=== PATIENT | male | born 1945 | race Caucasian/White ===

== ENCOUNTER 2020-03-25 21:36 | Observation (INO) ==
[2020-03-25] MEDS ORDERED: NS 0.9% 1000 ml BAG 1,000 ML IV ONE (22:49)
[2020-03-25 23:01] LABS: ABS Lymphocytes 0.6 10^3/ul (1.0-4.8); ABS Monocytes 0.8 10^3/ul (0-0.8); Eosinophil % 0.1 %; Hematocrit 47 % (42-52); Hemoglobin 16.3 g/dL (14.0-18.0); Lymphocyte % 7.6 %; Mean Corpuscular HGB Conc 35 g/dL (31-36); Mean Corpuscular Hemoglobin 32 pg (27-31); Mean Corpuscular Volume 92 fL (80-94); Mean Platelet Volume 7.8 fL (7.4-10.4); Nucleated Red Blood Cells % 0.1; Platelet Count 165 10^3/uL (150-450); Red Blood Count 5.08 10^6 /uL (4.18-5.48); Red Cell Distribution Width 13 % (10-15); White Blood Count 7.5 10^3/uL (3.5-10.8)
[2020-03-25 23:14] LABS: INR 1.27 (0.82-1.09)
[2020-03-25 23:20] LABS: Albumin 4.2 g/dL (3.2-5.2); Albumin/Globulin Ratio 1.6 (1-3); BUN/Creatinine Ratio 14.7 (8-20); C Reactive Protein 58.41 mg/L (<8.01); Calcium 8.7 mg/dL (8.6-10.3); EGFR African American 65.7 (>60); EGFR Non-African American 54.3 (>60); Globulin 2.7 g/dL (2-4); Potassium 4.1 mmol/L (3.5-5.0); Total Bilirubin 1.2 mg/dL (0.2-1.0); Total Protein 6.9 g/dL (6.4-8.9)
[2020-03-25 23:21] LABS: Troponin I 0.01 ng/mL (<0.03)
[2020-03-25 23:52] LABS: TSH (Thyroid Stimulating Horm) 0.75 mcIU/mL (0.34-5.60)
[2020-03-26 00:27] LABS: Influenza A Molecular Negative (Negative); Influenza B Molecular Negative (Negative)
[2020-03-26 00:42] LABS: Urine Appearance Clear; Urine Bilirubin Negative (Negative); Urine Blood Negative (Negative); Urine Color Yellow; Urine Glucose Negative (Negative); Urine Ketones Negative (Negative); Urine Nitrite Negative (Negative); Urine Protein Negative (Negative); Urine Urobilinogen Negative (Negative)
[2020-03-26] MEDS ORDERED: Iodixanol (CONTRAST) 320 MG/ML 100 ML SDV IV ONE (01:15)
[2020-03-26] MEDS ORDERED: Enoxaparin 80 MG/0.8 ML SYR(*) SUBCUT ONE (02:06)
[2020-03-26] MEDS ORDERED: Ondansetron 4 mg VIAL 2 MG/ML 2 ml VIAL IV PRN (03:13)
[2020-03-26 06:39] LABS: Albumin 3.6 g/dL (3.2-5.2); Albumin/Globulin Ratio 1.3 (1-3); BUN/Creatinine Ratio 16.3 (8-20); Calcium 8.3 mg/dL (8.6-10.3); EGFR African American 84.2 (>60); EGFR Non-African American 69.6 (>60); Globulin 2.7 g/dL (2-4); Potassium 4.1 mmol/L (3.5-5.0); Total Bilirubin 1.4 mg/dL (0.2-1.0); Total Protein 6.3 g/dL (6.4-8.9)
[2020-03-26] MEDS: Lisdexamfetamine 10 mg CAP(NF) PO SCH (10:11)
[2020-03-26] MEDS: Aspirin EC 81 mg TAB.EC (enteric coated) PO SCH (10:12)
[2020-03-26 11:58] LABS: Hepatitis B Surface Antigen Nonreactive (Nonreactive)
[2020-03-26 12:16] LABS: Hepatitis C Antibody Negative (Negative)
[2020-03-26] MEDS ORDERED: Perflutren Lipid Microsphere 3 ML VIAL ONE (15:18)
[2020-03-27 07:43] LABS: ABS Lymphocytes 0.8 10^3/ul (1.0-4.8); ABS Monocytes 0.7 10^3/ul (0-0.8); Eosinophil % 0.6 %; Hematocrit 39 % (42-52); Hemoglobin 13.9 g/dL (14.0-18.0); Lymphocyte % 12.1 %; Mean Corpuscular HGB Conc 36 g/dL (31-36); Mean Corpuscular Hemoglobin 32 pg (27-31); Mean Corpuscular Volume 90 fL (80-94); Mean Platelet Volume 8.1 fL (7.4-10.4); Platelet Count 139 10^3/uL (150-450); Red Blood Count 4.29 10^6 /uL (4.18-5.48); Red Cell Distribution Width 13 % (10-15); White Blood Count 6.2 10^3/uL (3.5-10.8)
[2020-03-27 07:54] LABS: Albumin 3.5 g/dL (3.2-5.2); Albumin/Globulin Ratio 1.5 (1-3); BUN/Creatinine Ratio 14.3 (8-20); Calcium 8.1 mg/dL (8.6-10.3); EGFR African American 98.3 (>60); EGFR Non-African American 81.2 (>60); Globulin 2.3 g/dL (2-4); Potassium 3.7 mmol/L (3.5-5.0); Total Bilirubin 1.2 mg/dL (0.2-1.0); Total Protein 5.8 g/dL (6.4-8.9)
[2020-03-27] MEDS: Aspirin EC 81 mg TAB.EC (enteric coated) PO SCH (10:13)
[2020-03-27] MEDS: Lisdexamfetamine 10 mg CAP(NF) PO SCH (10:14)
[2020-03-27 10:52] LABS: CRP High Sensitivity 97.32 mg/L (<2.00)
[2020-03-28 06:45] LABS: ABS Eosinophils 0.1 10^3/ul (0-0.6); ABS Monocytes 0.9 10^3/ul (0-0.8); Eosinophil % 1.3 %; Hematocrit 40 % (42-52); Hemoglobin 14.3 g/dL (14.0-18.0); Lymphocyte % 12.3 %; Mean Corpuscular HGB Conc 36 g/dL (31-36); Mean Corpuscular Hemoglobin 33 pg (27-31); Mean Corpuscular Volume 91 fL (80-94); Mean Platelet Volume 7.9 fL (7.4-10.4); Nucleated Red Blood Cells % 0.3; Platelet Count 144 10^3/uL (150-450); Red Blood Count 4.41 10^6 /uL (4.18-5.48); Red Cell Distribution Width 13 % (10-15); White Blood Count 8.1 10^3/uL (3.5-10.8)
[2020-03-28 06:46] LABS: BUN/Creatinine Ratio 14.3 (8-20); C Reactive Protein 77.96 mg/L (<8.01); Calcium 8.1 mg/dL (8.6-10.3); EGFR African American 98.3 (>60); EGFR Non-African American 81.2 (>60); Potassium 4.1 mmol/L (3.5-5.0)
[2020-03-28 08:50] LABS: Albumin 3.4 g/dL (3.2-5.2); Albumin/Globulin Ratio 1.4 (1-3); Globulin 2.4 g/dL (2-4); Indirect Bilirubin 0.8 mg/dL (0.3-1.0); Total Protein 5.8 g/dL (6.4-8.9)
[2020-03-28] MEDS: Aspirin EC 81 mg TAB.EC (enteric coated) PO SCH (08:59)
[2020-03-28] MEDS: Lisdexamfetamine 10 mg CAP(NF) PO SCH (09:00)
[2020-03-28 15:16] VITALS: BP 96/51
[2020-03-29 17:01] LABS: B garinii/B afzelii PCR Negative (Negative); B mayonii PCR Negative (Negative)
[2020-03-29 20:10] LABS: PSA Free 0.5 ng/mL
== END 2020-03-28 17:15 | disposition home or self-care (01) ==
LOC: MED 21:36 → ED 21:36 → MED 03-26 04:01
PROVIDERS: ADMIT Internal Medicine; ATTEND Internal Medicine